=== PATIENT | female | born 1955 | race Caucasian/White ===

== ENCOUNTER 2024-12-22 09:54 | Emergency (ER) | payer MEDICARE, BC ==
[~2024-12-22] VITALS: Ht 172.7 cm; Wt 66.7 kg
[2024-12-22 10:08] VITALS: BP 133/85; PULSE 95; TEMP 98; O2SAT 99
[2024-12-22] MEDS ORDERED: CYCL-394 PO (12:10)
[2024-12-22] MEDS ORDERED: HYDR-3965 PO (12:10)
--- NOTE | 2024-12-22 12:11 | Physician Documentation ---
History of Present Illness ~ Chief Complaint: Back Pain Stated Complaint: BACK PAIN Time Seen by MD: 11:43 Primary Medical Doctor: dr. mosley HPI 69-year-old female presents to the ED with a complaint of one week of right lumbar pain. 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 She she did not notice the pain right away but has developed increased lumbar pain which is preventing her from doing her normal tasks. She denies any numbness tingling incontinence. Day of Onset: Dec 22, 2024 Medication Reconciliation Allergies: Coded Allergies: Sulfa (Sulfonamide Antibiotics) (Verified Allergy, Unknown, fever, 12/22/24) Review of Systems All Other Systems at this time: Reviewed and Negative ROS As stated above in the HPI, otherwise all systems are reviewed and negative. Physical Exam Physical Exam Vital Signs: Temperature: 98.0, Source: Oral, Heart Rate: 95, Respiratory Rate: 18, BP: 133/85, Pulse Oximetry: 99, Weight: 66.700 Physical Exam General: Alert, no apparent distress. Respiratory: Lungs clear, no respiratory distress. back: R lumbar tenderness Neurologic: Oriented x4. Psychiatric: Normal mood and affect. Skin: Normal color, warm and dry. No edema, no ecchymosis. Progress Results/Orders Results/Orders Completed Orders - JOO PHIPPS BIOINFORMATICIAN Ketorolac Trometh 15mg/Ml Vial (Toradol (12/22/24 11:55) Vital Signs 12/22/24 10:08 Temp 98.0 Pulse 95 Resp 18 B/P (MAP) 133/85 Pulse Ox 99 Medical Decision Making Findings Patient presents with a clinical indications for a lumbar strain. I discussed at length [facility] importance of staying mobile taking medication as prescribed. He seemed willing to follow up with the primary care and obtain referral for physical therapy if her symptoms persist. She denies any red flag symptoms at this time I feel comfortable discharging her for outpatient management Differential Dx:Considerations: Include: AAA, Aortic dissection, , Appendicitis, Bowel obstruction, Cholelithiasis, Cholangitis, DJD, Ectopic , Fracture, Hepatitis, HNP, Musculoskeletal pain, Pancreatitis, Pyelonephritis, Strain, Urinary obstruction, Urolithiasis, Ovarian torsion, Other Departure Disposition: 01 HOME / SELF CARE / HOMELESS Impression: Primary Impression: Strain of lumbar region Condition: Stable Discharge Instructions: Lumbosacral Strain Referrals: NO PRIMARY CARE PROVIDER (PCP) Prescriptions Hydrocodone Bit/Acetaminophen 5/325 MG ([place] 5/325 MG) 5 Mg/325 Mg Tablet 1-2 TAB PO Q4-6 hours PRN for lumbar pain, #20 TAB Prov: JOO PHIPPS BIOINFORMATICIAN 12/22/24 Cyclobenzaprine HCl (Cyclobenzaprine HCl) 10 Mg Tablet 1 TAB PO Q8H for muscle spasms for 10 Days, #30 TAB Prov: JOO PHIPPS BIOINFORMATICIAN 12/22/24 Education Educated: Patient Educated regarding: diagnosis Signature Scribe Signature: rr Attestation: Scribed for Joo Phipps Biochemistry Technologist by Joo Tam NP . 12/22/24 12:11 JOO PHIPPS NP Dec 22, 2024 12:11
[2024-12-22 12:15] VITALS: RESP 18
[2024-12-22] MEDS: ketorolac trometh 15mg/ml vial 15 MG/ML ML IM ONE (12:15)
== END 2024-12-22 12:23 | disposition home or self-care (01) ==
LOC: ER 09:54
DX: S39.012A Strain of muscle, fascia and tendon of lower back, initial encounter (principal); Z88.2 Allergy status to sulfonamides; X58.XXXA Exposure to other specified factors, initial encounter; Y93.89 Activity, other specified; Y92.89 Other specified places as the place of occurrence of the external cause; Y99.8 Other external cause status
CPT/HCPCS: 96372; 99284; J1885